=== PATIENT | female | born 1970 | race Caucasian/White ===

== ENCOUNTER 2016-12-09 22:00 | Emergency (ER) | payer MEDICARE, MEDICAID ==
[~2016-12-09] VITALS: Ht 154.9 cm; Wt 45.4 kg
[~2016-12-09 22:00] MED LIST: ALPR.5T PO; ALPR1T; ALPR1T PO; ALPR2TAB2 PO; ARIP15TA PO; ATOR10TA PO; ATRV10T PO; CEFP500T4 PO; CEPH-38 PO; DARI15TA4 PO; DOXY100T2 PO; DULO60CA6 PO; ESCI20TA2 PO; ESTR1TAB24 PO; FLUO20CA42 PO; FRESHKOTE EYE OU; GABA100T PO; HYDR-2890 PO; HYDR-34 PO; HYOS0.1217 PO; IPRA3AMP IH; LEVO500T69 PO; LURA80TA3 PO; MELO7.5T; MORP15TA30 PO; NAPR-243 PO; NORE5TAB5 PO; OMEP20CA12 PO; ONDA-42 SL; OXYC10TA63 PO; OXYC20TA63 PO; PNT40TEC PO; PRD20T PO; QTP100T PO; TOLTA4; TOLTA4 PO; TPR100T PO; TRM50T PO; TRZ50T PO; ZAFI20TA6 PO; [UNRECOGNIZED DRUG - CODE]
[2016-12-09] MEDS ORDERED: OLANZapine 5 MG ODT (ZyPREXA ZYDIS) PO ONE (22:30)
--- NOTE | 2016-12-09 22:31 | ED Psychosocial ---
General Stated Complaint: PANIC ATTACKS CAUSING LOC AND FALLS Source: patient Exam Limitations: no limitations History of Present Illness Time seen by provider: 22:29 Initial Comments To ER with reports of panic attacks causing loss of consciousness. This is secondary to an upcoming court case in 6 days for accusations of shoplifting at [facility] earlier this month. She arrives with her daughter. Severity: moderate Allergies and Home Medications Allergies Coded Allergies: buspirone (Verified Allergy, Severe, HIVES, SWELLING, 09/14/07) Penicillins (Verified Allergy, Intermediate, HIVES, 02/22/12) levofloxacin (Verified Allergy, Mild, rash, 11/16/15) Uncoded Allergies: SULFA (Allergy, Severe, swelling, 11/16/15) Home Medications Alprazolam 1 Mg Tablet, 1 TAB PO TID PRN, (Reported) Doxycycline Hyclate 100 Mg Tablet, 100 MG PO BID, #20 Prescribed by: GEGE CARDENAS on 02/24/161852 Estradiol 1 Mg Tablet, 1 MG PO DAILY, (Reported) Fluoxetine HCl 20 Mg Capsule, 20 MG PO, (Reported) Ipratropium/Albuterol Sulfate 3 Ml Ampul.neb, 3 ML IH Q4H PRN, (Reported) Lurasidone HCl 80 Mg Tablet, 80 MG PO, (Reported) Morphine Sulfate 15 Mg Tablet.er, #60 (Reported) Naproxen 500 Mg Tablet, 1 EACH PO BID, (Reported) DO NOT TAKE WHILE TAKING PREDNISONE. Norethindrone Acetate 5 Mg Tablet, 5 MG PO DAILY, (Reported) Omeprazole 20 Mg Capsule.dr, 1 CAP PO DAILY, #30 (Reported) Ondansetron Hcl 4 Mg Tab, 4 MG SL Q4H, #5 FOR NAUSEA AND VOMITING Prescribed by: NÉSTOR ARORA on 11/21/131748 Oxycodone HCl/Acetaminophen 1 Each Tablet, #120 (Reported) Pantoprazole Sodium 40 Mg Tablet.dr, 1 TAB PO DAILY, #10 Prescribed by: NÉSTOR ARORA on 11/21/131748 Topiramate 100 Mg Tab, 100 MG PO DAILY, (Reported) Topiramate 100 Mg Tab, 200 MG PO EVENING, (Reported) Trazodone Hcl 50 Mg Tab, 50 MG PO BID, (Reported) Zafirlukast 20 Mg Tablet, 20 MG PO BID, (Reported) [freshkote eye drops] , 1 DROP OU BID, (Reported) Constitutional: see HPI EENTM: see HPI Respiratory: no symptoms reported Cardiovascular: no symptoms reported Genitourinary: no symptoms reported Musculoskeletal: no symptoms reported Skin: no symptoms reported Psychiatric/Neurological: See HPI, Anxiety Past Yllvfho-Ulfvzw-Zhmowq Hx Patient Social History Type Used: Cigarettes Recent Foreign Travel: No Contact w/Someone Who Travel: No Seasonal Allergies Seasonal Allergies: No Surgeries HX Surgeries: Yes (LAPAROSCOPY, BLADDER SX X 3, BACK) Surgeries: Hysterectomy, Orthopedic Respiratory Hx Respiratory Disorders: Yes Respiratory Disorders: COPD Cardiovascular Hx Cardiac Disorders: No Neurological Hx Neurological Disorders: No Reproductive System Hx Reproductive Disorders: No Sexually Transmitted Disease: 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 Genitourinary Hx Genitourinary Disorders: Yes (BLADDER SURGERY X 3) Gastrointestinal Hx Gastrointestinal Disorders: No Musculoskeletal Hx Musculoskeletal Disorders: Yes Musculoskeletal Disorders: Chronic Back Pain Endocrine Hx Endocrine Disorders: No HEENT HX ENT Disorders: No Psychosocial Hx Psychiatric Problems: Yes Behavioral Health Disorders: PTSD Blood Transfusions Hx Blood Disorders: Yes Physical Exam Vital Signs Vital Sign - Last 12Hours 12/09/16 22:07 Temp 99.0 Pulse 87 Resp 24 B/P (MAP) 107/82 Pulse Ox 96 O2 Delivery Room Air Capillary Refill : General Appearance: WD/WN, no apparent distress HEENT: PERRL/EOMI, normal ENT inspection Neck: non-tender, full range of motion Respiratory: no respiratory distress Cardiovascular: regular rate, rhythm, no murmur Gastrointestinal: normal bowel sounds, non tender, soft Neurologic/Psychiatric: alert, normal mood/affect, other (tearful, speaking quickly, becomes tachypneic and increases crying and then immediately goes entirely left which lasts for about 1 minute and then she awakens and asks where she is.) Appearance/Memory: disheveled Behavior/Eye Contact: increased rate of speech, compulsive Thoughts/Hallucinations: flight of ideas Skin: normal color, warm/dry Progress/Results/Core Measures Results/Orders My Orders Orders - RAYMUNDO REYES APRN Olanzapine Orally Dissolve Tab (Zyprexa (12/09/16 22:30) Medications Given in ED Current Medications Medications Dose Ordered Sig/Jaimee Route Start Time Stop Time Status Last Admin Dose Admin Olanzapine 5 mg ONCE ONCE PO 12/09/16 22:30 12/09/16 22:31 DC 12/09/16 22:32 5 MG Vital Signs/I&O Vital Sign - Last 12Hours 12/09/16 22:07 Temp 99.0 Pulse 87 Resp 24 B/P (MAP) 107/82 Pulse Ox 96 O2 Delivery Room Air Departure Communication Progress Notes 6629-After much hysteria the patient is finally calm down and can speak in a full sentence without hyperventilating. She states that she feels better and is ready to go home. She now states to me that she has not had any of her Xanax today , normally she takes 2 of these per day. She does have an adequate supply of these at home Impression Impression: Primary Impression: Anxiety hysteria Disposition: HOME, SELF-CARE Condition: Improved Departure-Patient Inst. Decision time for Depature: 22:30 Referrals: YARY VELIZ MD (PCP/Family) Primary Care Physician Patient Instructions: Panic Disorder (DC) Add. Discharge Instructions: You may go home and go to sleep. Have your scan tomorrow as scheduled RAYMUNDO REYES APRN Dec 09, 2016 22:31
[2016-12-09] MEDS ORDERED: MORP-33 (22:53)
[2016-12-09] MEDS ORDERED: OXYC-464 (22:53)
[2016-12-09 23:11] VITALS: BP 107/82
== END 2016-12-09 23:11 | disposition home or self-care (01) ==
LOC: EDUNIT# 22:00 → ER 22:03
DX: F41.8 Other specified anxiety disorders (principal); J44.9 Chronic obstructive pulmonary disease, unspecified; F43.10 Post-traumatic stress disorder, unspecified; F17.210 Nicotine dependence, cigarettes, uncomplicated
CPT/HCPCS: 99283

== ENCOUNTER 2016-12-11 22:08 | Emergency (ER) | payer MEDICARE, MEDICAID ==
[~2016-12-11] VITALS: Ht 162.6 cm; Wt 59.0 kg
[~2016-12-11 22:08] MED LIST changes: +MORP-33; +OXYC-464
[2016-12-11 22:36] LABS: BILIRUBIN,URINE NEGATIVE (NEGATIVE); KETONES,URINE NEGATIVE (NEGATIVE); LEUKOCYTE ESTERASE ,URINE NEGATIVE (NEGATIVE); NITRITE,URINE NEGATIVE (NEGATIVE); PH,URINE 7 (5-9); PROTEIN,URINE NEGATIVE (NEGATIVE); UROBILINOGEN,URINE NORMAL (NORMAL)
[2016-12-11 22:37] LABS: WBC,URINE RARE /HPF
[2016-12-11 22:42] LABS: BASOPHILS # (AUTO) 0.1 10^3/uL (0.0-0.1); BASOPHILS % (AUTO) 1 % (0-10); EOSINOPHILS # (AUTO) 0.2 10^3/uL (0.0-0.3); EOSINOPHILS % (AUTO) 2 % (0-10); LYMPHOCYTES % (AUTO) 43 % (12-44); MEAN CORPUSCULAR HEMOGLOBIN 34 PG (25-34); MEAN CORPUSCULAR HGB CONC 34 G/DL (32-36); MEAN CORPUSCULAR VOLUME 100 FL (80-99); MEAN PLATELET VOLUME 8.4 FL (7.4-10.4); MONOCYTES # (AUTO) 0.7 X 10^3 (0.0-1.0); MONOCYTES % (AUTO) 8 % (0-12); NEUTROPHILS # (AUTO) 4.3 X 10^3 (1.8-7.8); NEUTROPHILS % (AUTO) 46 % (42-75); PLATELET COUNT 302 10^3/uL (130-400); RED BLOOD COUNT 3.82 10^6/uL (4.35-5.85); RED CELL DISTRIBUTION WIDTH 14.2 % (10.0-14.5); WHITE BLOOD COUNT 9.3 10^3/uL (4.3-11.0)
[2016-12-11 22:51] LABS: INR 1.1 (0.8-1.4); PROTHROMBIN TIME PATIENT 13.4 SEC (12.2-14.7)
[2016-12-11 23:03] LABS: ALANINE AMINOTRANSFERASE 15 U/L (0-55); ALBUMIN 3.9 GM/DL (3.2-4.5); ALCOHOL 100 MG/DL (<10); ANION GAP 10 MMOL/L (5-14); ASPARTATE AMINO TRANSFERASE 22 U/L (5-34); BILIRUBIN,TOTAL 0.3 MG/DL (0.1-1.0); BLOOD UREA NITROGEN 10 MG/DL (7-18); BUN/CREATININE RATIO 13 (0-20); CALCIUM 8.8 MG/DL (8.5-10.1); CARBON DIOXIDE 21 MMOL/L (21-32); CHLORIDE 109 MMOL/L (98-107); CREATINE KINASE 303 U/L (29-168); CREATININE SERUM 0.78 MG/DL (0.60-1.30); GFR ESTIMATED > 60; GLUCOSE 79 MG/DL (70-105); HEMOLYSIS 8 (-100-29); ICTERUS 0.4 (-100-1.9); LIPEMIA 6 (-100-49); MAGNESIUM 2.1 MG/DL (1.8-2.4); POTASSIUM 3.3 MMOL/L (3.6-5.0); SODIUM 140 MMOL/L (135-145); TOTAL PROTEIN 6.5 GM/DL (6.4-8.2)
[2016-12-11 23:22] LABS: TROPONIN I < 0.30 NG/ML (<0.30)
--- NOTE | 2016-12-11 23:52 | ED General ---
General Chief Complaint: Psych/Social Disorder Stated Complaint: UNRESPONSIVE Nursing Triage Note: BROUGHT IN BY [facility] PT REPORTED TO BE UNRESPONSIVE IN BACK YARD. PPD PERFORMED 1-2 COMPRESSIONS AND PT BECAME ALERT. PT REPORTS NECK/BACK/ POST. HEAD PAIN. PT REPORTS DRINKING 3 BEERS TODAY AND HAVING INCREASED ANXIETY. Nursing Sepsis Screen: No Definite Risk Source of Information: Patient, EMS History of Present Illness Time Seen by Provider: 22:10 Initial Comments PT ARRIVES VIA EMS FROM HOME--IN [facility] EMS STATE THEY WERE CALLED TO SCENE FOR PT BEING UNRESPONSIVE. BYSTANDER WHO CALLED EMS DID NOT KNOW IF PT WAS BREATHING OR HAD A HEART BEAT AND REFUSED TO START CPR. POLICE AT SCENE, WERE UNSURE IF PT HAD A PULSE OR NOT, SO DID 2 COMPRESSIONS AND PT SUDDENLY WOKE UP AND WAS AWAKE AND ORIENTED X 3 PT STATES SHE HAS HAD "A COUPLE OF BEERS' TONIGHT, BUT STATES SHE HAS NOT TAKEN ANY OF HER MEDICATIONS TODAY--GIVES NO REASON TO WHY SHE HAS NOT TAKEN THEM PT STATES SHE WAS TALKING TO HER DAUGHTERS AND GOT UPSET AND STARTED HAVING A PANIC ATTACK AND HYPERVENTILATING, AND THEN WENT DOWN TO THE GROUND PT STATES THIS ALSO HAPPENED 2 NIGHTS AGO, AFTER ARGUING AND GETTING UPSET, SHE STATES SHE STARTED WALKING AND HAD THE SAME THING HAPPEN AND "DROPPED TO THE GROUND" --PT ABLE TO RECALL ALL EVENTS--SEEN IN ER AT THAT TIME WELL. PT REPORTED AT THAT TIME, SHE WAS HAVING ANXIETY ABOUT UPCOMING COURT CASE NEXT WEEK FOR ACCUSATIONS OF SHOPLIFTING AT [employer]. WAS FEELING SHORT OF BREATH AND CHEST WAS GETTING TIGHT SHE WAS GETTING MORE AND MORE UPSET /ANXIOUS AND HYPERVENTILATING MORE-THOSE SYMPTOMS ARE GONE NOW C/O PAIN TO NECK AND BACK--THESE ARE CHRONIC COMPLAINTS NO PARESTHESIAS OR MOTOR DEFICITS C/O PAIN TO BACK OF HEAD NO INCONTINENCE--C/O NEEDING TO URINATE ON ARRIVAL. NO POST ICTAL SYMPTOMS OR SEIZURE ACTIVITY PCP: DR. VELIZ Allergies and Home Medications Allergies Coded Allergies: buspirone (Verified Allergy, Severe, HIVES, SWELLING, 09/14/07) Penicillins (Verified Allergy, Intermediate, HIVES, 02/22/12) levofloxacin (Verified Allergy, Mild, rash, 11/16/15) Uncoded Allergies: SULFA (Allergy, Severe, swelling, 11/16/15) Home Medications Alprazolam 1 Mg Tablet, 1 TAB PO TID PRN, (Reported) Estradiol 1 Mg Tablet, 1 MG PO DAILY, (Reported) Fluoxetine HCl 20 Mg Capsule, 20 MG PO, (Reported) Ipratropium/Albuterol Sulfate 3 Ml Ampul.neb, 3 ML IH Q4H PRN, (Reported) Lurasidone HCl 80 Mg Tablet, 80 MG PO, (Reported) Morphine Sulfate 15 Mg Tablet.er, #60 (Reported) Naproxen 500 Mg Tablet, 1 EACH PO BID, (Reported) DO NOT TAKE WHILE TAKING PREDNISONE. Norethindrone Acetate 5 Mg Tablet, 5 MG PO DAILY, (Reported) Omeprazole 20 Mg Capsule.dr, 1 CAP PO DAILY, #30 (Reported) Ondansetron Hcl 4 Mg Tab, 4 MG SL Q4H, #5 FOR NAUSEA AND VOMITING Prescribed by: NÉSTOR ARORA on 11/21/131748 Oxycodone HCl/Acetaminophen 1 Each Tablet, #120 (Reported) Pantoprazole Sodium 40 Mg Tablet.dr, 1 TAB PO DAILY, #10 Prescribed by: NÉSTOR ARORA on 11/21/131748 Topiramate 100 Mg Tab, 100 MG PO DAILY, (Reported) Topiramate 100 Mg Tab, 200 MG PO EVENING, (Reported) Trazodone Hcl 50 Mg Tab, 50 MG PO BID, (Reported) Zafirlukast 20 Mg Tablet, 20 MG PO BID, (Reported) [freshkote eye drops] , 1 DROP OU BID, (Reported) Constitutional: see HPI EENTM: see HPI Respiratory: see HPI Cardiovascular: see HPI Gastrointestinal: no symptoms reported Genitourinary: no symptoms reported : No Musculoskeletal: see HPI, back pain, neck pain Skin: no symptoms reported Psychiatric/Neurological: See HPI, Anxiety, Emotional Problems, Headache, Denies Numbness, Denies Paresthesia, Denies Seizure, Denies Tingling, Denies Tremors Hematologic/Lymphatic: No Symptoms Reported Immunological/Allergic: no symptoms reported Past Hzljjgc-Kzruvv-Woggzw Hx Patient Social History Alcohol Use: Occasionally Uses Recreational Drug Use: No (DENIES, BUT TAKES RX BENZODIAZEPINES AND OPIATES ON A DAILY BASIS) Drug of Choice: DENIES Smoking Status: Current Everyday Smoker (4 PPD) Type Used: Cigarettes 2nd Hand Smoke Exposure: No Recent Foreign Travel: No Contact w/Someone Who Travel: No Recent Infectious Disease Expo: No Recent Hopitalizations: No Immunizations Up To Date Tetanus Booster (TDap): Unknown Seasonal Allergies Seasonal Allergies: No Surgeries HX Surgeries: Yes (LAPAROSCOPY, BLADDER SX X 3, BENIGN TUMOR REMOVED FROM BACK ; HYST /BSO) Surgeries: Appendectomy, Bladder Surgery, Hysterectomy, Oophorectomy Respiratory Hx Respiratory Disorders: Yes Respiratory Disorders: Asthma, COPD Cardiovascular Hx Cardiac Disorders: Yes Cardiac Disorders: High Cholesterol Neurological Hx Neurological Disorders: Yes Neurological Disorders: Headaches /Migraines Reproductive System : No Hx Reproductive Disorders: Yes (CHRONIC PELVIC PAIN ) 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 Genitourinary Hx Genitourinary Disorders: Yes (BLADDER SURGERY X 3; BLADDER CONTROL ISSUES) Gastrointestinal Hx Gastrointestinal Disorders: No Musculoskeletal Hx Musculoskeletal Disorders: Yes (CHRONIC NECK AND BACK PAIN; CHRONIC GENERALIZED PAIN; CHRONIC KNEE PAIN; CHRONIC CHEST AND RIB PAIN ) Musculoskeletal Disorders: Chronic Back Pain Endocrine Hx Endocrine Disorders: No HEENT HX ENT Disorders: No Cancer Hx Cancer: No Psychosocial Hx Psychiatric Problems: Yes (EXTENISVE PSYCH ISSUES--PTSD, ANXIETY, PANIC ATTACKS, BIOPLAR ) Behavioral Health Disorders: Anxiety, PTSD, Bipolar, Depression Integumentary HX Skin/Integumentary Disorder: No Blood Transfusions Hx Blood Disorders: Yes (ANEMIA) Physical Exam Vital Signs Vital Sign - Last 12Hours 12/11/16 22:17 Temp 97.8 Pulse 86 Resp 16 B/P (MAP) 133/94 Pulse Ox 98 O2 Delivery Room Air Capillary Refill : Less Than 3 Seconds General Appearance: No Apparent Distress, Thin HEENT: PERRL/EOMI, TMs Normal, Normal ENT Inspection, Pharynx Normal Neck: Other (CERVICAL COLLAR ON ARRIVAL) Respiratory: Chest Non Tender, Normal Breath Sounds, No Accessory Muscle Use, No Respiratory Distress Cardiovascular: Regular Rate, Rhythm, No Edema, No JVD, No Murmur, Normal Peripheral Pulses Gastrointestinal: Normal Bowel Sounds, No Organomegaly, No Pulsatile Mass, Non Tender, Soft Back: Normal Inspection, No CVA Tenderness, No Vertebral Tenderness Extremity: Normal Capillary Refill, Normal Inspection, Normal Range of Motion, Non Tender, No Calf Tenderness, No Pedal Edema Neurologic/Psychiatric: Alert, Oriented x3, No Motor/Sensory Deficits, 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 as 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, Other (ANXIOUS, CONSTANT LEG MOVEMENTS, ) Skin: Normal Color, Warm/Dry Progress/Results/Core Measures Results/Orders Lab Results Laboratory Tests Test 12/11/16 22:19 12/11/16 22:30 Range/Units Urine Color YELLOW Urine Clarity CLEAR Urine pH 7 5-9 Urine Specific [place] 1.010 L 1.016-1.022 Urine Protein NEGATIVE NEGATIVE Urine Glucose (UA) NEGATIVE NEGATIVE Urine Ketones NEGATIVE NEGATIVE Urine Nitrite NEGATIVE NEGATIVE Urine Bilirubin NEGATIVE NEGATIVE Urine Urobilinogen NORMAL NORMAL MG/DL Urine Leukocyte Esterase NEGATIVE NEGATIVE Urine RBC (Auto) NEGATIVE NEGATIVE Urine RBC NONE /HPF Urine WBC RARE /HPF Urine Squamous Epithelial Cells 2-5 /HPF Urine Crystals NONE /LPF Urine Bacteria FEW H /HPF Urine Casts NONE /LPF Urine Mucus NEGATIVE /LPF Urine Culture Indicated NO Urine Opiates Screen POSITIVE H NEGATIVE Urine Oxycodone Screen NEGATIVE NEGATIVE Urine Methadone Screen NEGATIVE NEGATIVE Urine Propoxyphene Screen NEGATIVE NEGATIVE Urine Barbiturates Screen NEGATIVE NEGATIVE Ur Tricyclic Antidepressants Screen NEGATIVE NEGATIVE Urine Phencyclidine Screen NEGATIVE NEGATIVE Urine Amphetamines Screen NEGATIVE NEGATIVE Urine Methamphetamines Screen NEGATIVE NEGATIVE Urine Benzodiazepines Screen POSITIVE H NEGATIVE Urine Cocaine Screen NEGATIVE NEGATIVE Urine Cannabinoids Screen NEGATIVE NEGATIVE White Blood Count 9.3 4.3-11.0 10^3/uL Red Blood Count 3.82 L 4.35-5.85 10^6/uL Hemoglobin 12.9 11.5-16.0 G/DL Hematocrit 38 35-52 % Mean Corpuscular Volume 100 H 80-99 FL Mean Corpuscular Hemoglobin 34 25-34 PG Mean Corpuscular Hemoglobin Concent 34 32-36 G/DL Red Cell Distribution Width 14.2 10.0-14.5 % Platelet Count 302 130-400 10^3/uL Mean Platelet Volume 8.4 7.4-10.4 FL Neutrophils (%) (Auto) 46 42-75 % Lymphocytes (%) (Auto) 43 12-44 % Monocytes (%) (Auto) 8 0-12 % Eosinophils (%) (Auto) 2 0-10 % Basophils (%) (Auto) 1 0-10 % Neutrophils # (Auto) 4.3 1.8-7.8 X 10^3 Lymphocytes # (Auto) 4.0 1.0-4.0 X 10^3 Monocytes # (Auto) 0.7 0.0-1.0 X 10^3 Eosinophils # (Auto) 0.2 0.0-0.3 10^3/uL Basophils # (Auto) 0.1 0.0-0.1 10^3/uL Prothrombin Time 13.4 12.2-14.7 SEC INR Comment 1.1 0.8-1.4 Activated Partial Thromboplast Time 30 24-35 SEC Sodium Level 140 135-145 MMOL/L Potassium Level 3.3 L 3.6-5.0 MMOL/L Chloride Level 109 H 98-107 MMOL/L Carbon Dioxide Level 21 21-32 MMOL/L Anion Gap 10 5-14 MMOL/L Blood Urea Nitrogen 10 7-18 MG/DL Creatinine 0.78 0.60-1.30 MG/DL Estimat Glomerular Filtration Rate > 60 BUN/Creatinine Ratio 13 0-20 Glucose Level 79 70-105 MG/DL Calcium Level 8.8 8.5-10.1 MG/DL Magnesium Level 2.1 1.8-2.4 MG/DL Total Bilirubin 0.3 0.1-1.0 MG/DL Aspartate Amino Transf (AST/SGOT) 22 5-34 U/L Alanine Aminotransferase (ALT/SGPT) 15 0-55 U/L Alkaline Phosphatase 49 40-136 U/L Total Creatine Kinase 303 H 29-168 U/L Troponin I < 0.30 <0.30 NG/ML Total Protein 6.5 6.4-8.2 GM/DL Albumin 3.9 3.2-4.5 GM/DL TSH [place]er Testing 0.63 0.35-4.94 UIU/ML Serum Alcohol 100 H <10 MG/DL My Orders Orders - NÉSTOR ARORA DO Saline Lock/Iv-Start (12/11/16 22:13) Ekg Tracing (12/11/16 22:13) Monitor-Rhythm Ecg Trace Only (12/11/16 22:13) Ct Head/Cervical Spine Wo (12/11/16 22:13) Ct Thoracic/Lumbar Spine Wo (12/11/16 22:13) Alcohol (12/11/16 22:13) Cbc With Automated Diff (12/11/16 22:13) Comprehensive Metabolic Panel (12/11/16 22:13) Creatine Kinase (12/11/16 22:13) Drug Screen Stat (Urine) (12/11/16 22:13) Magnesium (12/11/16 22:13) Protime With Inr (12/11/16 22:13) Partial Thromboplastin Time (12/11/16 22:13) Thyroid Analyzer (12/11/16 22:13) Troponin I (12/11/16 22:13) Ua Culture If Indicated (12/11/16 22:13) Chest 1 View, Ap/Pa Only (12/11/16 22:13) Pelvis (12/11/16 22:13) Vital Signs/I&O Vital Sign - Last 12Hours 12/11/16 12/12/16 22:17 00:00 Temp 97.8 98.0 Pulse 86 75 Resp 16 16 B/P (MAP) 133/94 Pulse Ox 98 96 O2 Delivery Room Air Room Air Blood Pressure Mean: 107 Progress Note : Progress Note 2326--CERVICAL COLLAR REMOVED AFTER OBTAINING NEGATIVE CT REPORT ON HEAD AND CERVICAL SPINE. PT DOES NOT HAVE ANY NECK PAIN OR TENDERNESS AT THIS TIME UNEVENTFUL ER STAY ECG Initial ECG Impression Time: 23:16 Initial ECG Rate: 75 Initial ECG Rhythm: Normal Sinus Initial ECG Impression: Normal Initial ECG Comparisson: Unchanged Diagnostic Imaging Comments CT HEAD/CERVICAL SPINE--NO ACUTE PROCESS, PER [facility] VIA FAX @ 7018 CT THORACIC/LUMBAR SPINE--NO ACUTE PROCESS, PER [facility] VIA FAX @ 8965 CXR--NO ACUTE PROCESS XRAYS PELVIS--NO ACUTE PROCESS PENDING RADIOLOGIST REVIEWS Reviewed: Reviewed by Me Departure Impression Impression: Primary Impression: ANXIETY WITH HYPERVENTILATION AND POSSIBLE SYNCOPAL EPISODE Additional Impressions: EXACERBATION OF CHRONIC BACK AND NECK PAIN Alcohol intoxication Disposition: 01 HOME, SELF-CARE Condition: Stable Departure-Patient Inst. Referrals: YARY VELIZ MD (PCP/Family) Primary Care Physician Patient Instructions: ALCOHOL AND SUBSTANCE ABUSE, Chronic Neck Pain (DC), Generalized Anxiety Disorder (DC), Hyperventilation, MANAGING YOUR CHRONIC PAIN , Syncope (Fainting) (DC) Add. Discharge Instructions: HOME, REST LOTS OF CLEAR LIQUIDS TAKE YOUR MEDICATIONS PRESCRIBED NO ALCOHOL!!!! FOLLOW UP WITH YOUR DR ON WEDNESDAY FOR FURTHER CARE All discharge instructions reviewed with patient and/or family. Voiced understanding. NÉSTOR ARORA DO Dec 11, 2016 23:52
[2016-12-12] VITALS: BP 114/84
--- NOTE | 2016-12-12 06:47 | Diagnostic Imaging Report ---
INDICATION: Fall, head pain, double vision, and back pain. COMPARISON: 04/28/2015. TECHNIQUE: Axial CT thoracolumbar spine performed with sagittal and coronal reconstructions. FINDINGS: The thoracic and lumbar vertebral statures are stable and aligned anatomically, unchanged from prior. No acute or suspicious endplate irregularity. No fracture or paravertebral hemorrhage. No high-grade canal stenosis evident. No change. IMPRESSION: Stable exam reveals no CT evidence for thoracolumbar spinal fracture or traumatic malalignment. Dictated by: Dictated on workstation # [id number]
--- NOTE | 2016-12-12 07:00 | Diagnostic Imaging Report ---
PROCEDURE: CT head and CT cervical spine without contrast. TECHNIQUE: Multiple contiguous axial images were obtained through the brain and cervical spine without the use of intravenous contrast. Sagittal and coronal reformations through the cervical spine were then performed. INDICATION: Fall, syncope, and diplopia. CT head: There is no intracranial hemorrhage, hydrocephalus, edema, mass or mass effect. Basilar cisterns patent and sulci non-effaced. Orbits, sinuses and calvarium nonacute. CT cervical spine: Reconstruction views revealed normal body heights aligned anatomically. No substantial canal stenosis. Skull base appeared intact. There is no cervical fracture. No paravertebral hemorrhage, mass or fluid collection demonstrated. IMPRESSION: No acute finding apparent at CT head and CT cervical spine evaluation. Dictated by: Dictated on workstation # [id number]
--- NOTE | 2016-12-12 08:22 | Diagnostic Imaging Report ---
INDICATION: Fall FINDINGS: No fracture or dislocation. IMPRESSION: No acute appearing abnormality Dictated by: Dictated on workstation # [id number]
--- NOTE | 2016-12-12 08:28 | Diagnostic Imaging Report ---
INDICATION: Fall, pain FINDINGS: No lung contusion, pneumothorax or hemothorax. No free air beneath the diaphragms. No displaced chest wall fracture deformity. IMPRESSION: No acute appearing abnormality Dictated by: Dictated on workstation # [id number]
--- OUTSIDE RECORDS SUMMARY | 2016-12-14 15:56 | XMS REPORT | Continuity of Care Document ---
Author Author [facility] Organization [facility] Address Unknown Phone Unavailable Care Team Providers Care Grants Administrator Name Role Phone Maile Duarte PCP [phone] Source Comments Some departments are not documenting in the electronic medical record. If you do not see the information that you expected, contact Release of Information in the Health Information Management department at [phone] for further assistance in locating additional records.[facility] Active Allergies and Adverse Reactions Allergen Noted Date Severity Reactions Comments Buspar 01/01/2014 RASH Pcn 01/01/2014 Medium RASH, UNKNOWN Sulfa (Sulfonamide 10/30/2014 Medium SEE COMMENTS, EDEMA Abdominal cramping Antibiotics) Current Medications Prescription Sig. Disp. Refills Start End Date Status Date montelukast (SINGULAIR) Take 10 mg by mouth at Active 10 mg tablet bedtime daily. omeprazole DR(+) Take 20 mg by mouth Active (PRILOSEC) 20 mg capsule daily. albuterol (VENTOLIN HFA, Inhale 2 Puffs by mouth Active PROAIR HFA) 90 every 6 hours as needed. mcg/actuation inhaler Typically 2 puffs twice a day tiZANidine (ZANAFLEX) 4 Take 4 mg by mouth every Active mg tablet 6 hours as needed. traZODone (DESYREL) 100 Take 200 mg by mouth at Active mg tablet bedtime daily. FLUoxetine(+) (PROZAC) 40 Take 60 mg by mouth Active mg capsule daily. Eye Lubricant Combination Place into or around Active No.1 (FRESHKOTE) eye(s). 2-0.9-1.8 % drop [id number] Take by mouth. Active p 11 10-325 mg cmpk raloxifene (EVISTA) 60 mg Take 60 mg by mouth daily Active tablet before breakfast. norethindrone(+) Take 5 mg by mouth daily. Active (AYGESTIN) 5 mg tab lurasidone(+) (LATUDA) 80 Take 80 mg by mouth as Active mg tablet directed. Patient takes at night ipratropium/albuterol Inhale 2 Puffs by mouth Active (COMBIVENT) 103/18 four times daily. mcg/Actuation inhaler ALPRAZolam (XANAX) 1 mg Take 1 mg by mouth at Active tablet bedtime as needed. budesonide/formoterol Inhale 2 Puffs by mouth Active (SYMBICORT) 160/4.5 mcg twice daily. HFAA inhalation topiramate (TOPAMAX) 100 Take 100 mg by mouth Active mg tablet twice daily. Takes two in morning. topiramate (TOPAMAX) 100 Take 200 mg by mouth at Active mg tablet bedtime daily. naproxen (NAPROSYN) 500 Take 500 mg by mouth Active mg tablet twice daily with meals. morphine SR (MS CONTIN; Take 15 mg by mouth every Active ORAMORPH SR) 15 mg tablet 12 hours LACTOBACILLUS COMBO NO.5 Take 1 Tab by mouth Active (PROVELLA PO) daily. TIOTROPIUM BROMIDE Inhale 1 Cap by mouth. Active (SPIRIVA WITH HANDIHALER Take 2 puffs IN) promethazine (PHENERGAN) Take 25 mg by mouth every Active 25 mg tablet 6 hours as needed for Nausea. mirtazapine (REMERON) 15 Take 15 mg by mouth at Active mg tablet bedtime daily. PAROXETINE HCL (PAXIL PO) Take 40 mg by mouth. Active oxyCODONE-acetaminophen(+ Take 1-2 Tabs by mouth Active ) (PERCOCET; ENDOCET) every 4 hours as needed 7.5-325 mg tablet atorvastatin (LIPITOR) 10 Take 10 mg by mouth Active mg tablet daily. ziprasidone (GEODON) 40 Take 80 mg by mouth twice Active mg capsule daily with meals. ospemifene 60 mg tab Take by mouth. Active trospium ER(+) (SANCTURA Take 1 Cap by mouth 30 Cap 12 11/13/19 Active XR) 60 mg capsule daily. Do not cut/ crush/ 17 chew hydrOXYzine (ATARAX) 25 Take 1 Tab by mouth twice 60 Tab 12 11/13/19 Active mg tablet daily. 17 Active Problems Problem Noted Date Urge incontinence 01/04/2014 Overview: 05/10/2014: Mirabegron 50mg. L ast Assessment & Plan: Patient currently symptomatic with some benefit with the use of Mirabegron. Her pelvic exam was normal. We counseled her on pelvic floor therapy, constipation management. Plan: PFRT referral with biofeedback, Constipation management. Continue Mirabegron RTC in 3 months for symptoms check Chronic pelvic pain in female 01/04/2014 Depression 01/04/2014 PTSD (post-traumatic stress disorder) 01/04/2014 Most Recent Encounters Date Type Specialty Providers Description 11/12/2016 Office Visit Urology Sampson Barrett MD Urinary urgency ( Primary Dx); Interstitial cystitis Social History Tobacco Use Types Packs/Day Years Used Date Heavy Tobacco Smoker Cigarettes 2 17 Alcohol Use Drinks/Week oz/Week Comments Yes 1-2 every 6 months, occasionally Last Filed Vital Signs Vital Sign Reading Time Taken Blood Pressure 124/83 11/12/2016 1:16 PM CDT Pulse 79 11/12/2016 1:16 PM CDT Temperature 36.5 C (97.7 F) 11/13/2014 9:40 AM CDT Respiratory Rate - - Height 1.549 m (5' 1") 11/12/2016 1:16 PM CDT Weight 46.72 kg (103 lb) 11/12/2016 1:16 PM CDT Body Mass Index 19.47 11/12/2016 1:16 PM CDT Oxygen Saturation 100% 11/13/2014 2:00 PM CDT Plan of Care Health Maintenance Due Date Last Done Comments Physical (Comprehensive) 1977 Exam Pertussis Vaccine 1981 Tetanus Vaccine 1987 Cervical Cancer Screening 1991 Breast Cancer Screening 2010 Influenza Vaccine 02/19/2017 Results from Last 3 Months Not on file
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
== END 2016-12-11 23:56 | disposition home or self-care (01) ==
LOC: EDUNIT# 22:08 → ER 22:09
DX: F41.8 Other specified anxiety disorders (principal); F45.8 Other somatoform disorders; G89.29 Other chronic pain; M54.9 Dorsalgia, unspecified; M54.2 Cervicalgia; F31.9 Bipolar disorder, unspecified; E78.00 Pure hypercholesterolemia, unspecified; F41.9 Anxiety disorder, unspecified; J44.9 Chronic obstructive pulmonary disease, unspecified; F17.210 Nicotine dependence, cigarettes, uncomplicated; F10.129 Alcohol abuse with intoxication, unspecified
CPT/HCPCS: 36415; 70450; 71010; 72125; 72128; 72131; 72170; 80053; 80306; 80320; 81000; 82550; 83735; 84443; 84484; 85025; 85610; 85730; 93005; 93041

== ENCOUNTER → 2017-01-14 | Outpatient (CLI) | payer MEDICARE, MEDICAID ==
--- NOTE | 2017-01-14 16:30 | Diagnostic Imaging Report ---
INDICATION: Cough and dyspnea. PA and lateral views of the chest are obtained. Comparison is made to study of 12/11/2016. FINDINGS: Heart size and pulmonary vascularity are within normal limits, and the lungs are clear, bilaterally. IMPRESSION: Unremarkable chest. Dictated by: Dictated on workstation # [id number]
== END ==
LOC: RAD 16:12
PROVIDERS: ATTEND Nurse Practitioner Family
DX: J42 Unspecified chronic bronchitis (principal); J45.909 Unspecified asthma, uncomplicated; R06.00 Dyspnea, unspecified
CPT/HCPCS: 71020

== ENCOUNTER → 2017-01-18 | Outpatient (CLI) | payer MEDICARE, MEDICAID ==
[~2017-01-18] MED LIST changes: +RT-ALBUTEROL SULF 2.5 MG/3 ML PRE-MIX VIAL IH ONE
== END ==
LOC: RT 15:16
PROVIDERS: ATTEND Nurse Practitioner Family
DX: J45.909 Unspecified asthma, uncomplicated (principal); R06.00 Dyspnea, unspecified
CPT/HCPCS: 94060; 94640; 94726; 94729

== ENCOUNTER 2017-12-30 23:26 | Emergency (ER) | payer MEDICARE, MEDICAID ==
[~2017-12-30] VITALS: Ht 154.9 cm; Wt 47.6 kg
[~2017-12-30 23:26] MED LIST changes: -RT-ALBUTEROL SULF 2.5 MG/3 ML PRE-MIX VIAL IH ONE
--- OUTSIDE RECORDS SUMMARY | 2017-12-30 23:33 | XMS REPORT | Clinical Summary ---
Author Author [facility] Organization [facility] Address Unknown Phone Unavailable Care Team Providers Care Swatch Cutter Name Role Phone Jasvir Lambert MD Unavailable Sampson Barrett MD Unavailable Sadie Connolly RN Unavailable Unavailable Waylon Harrell MD Unavailable Unavailable Maile Duarte MD PCP Mushtaq Lopez RN Unavailable Unavailable Belkis Spaulding MD Unavailable Jorden Maria MD Unavailable Source Comments Some departments are not documenting in the electronic medical record. If you do not see the information that you expected, contact Release of Information in the Health Information Management department at [phone] for further assistance in locating additional records.[facility] Allergies Active Allergy Reactions Severity Noted Date Comments Buspirone RASH 01/01/2014 Penicillins RASH, UNKNOWN Medium 01/01/2014 Sulfa (Sulfonamide SEE COMMENTS, EDEMA Medium 10/30/2014 Abdominal cramping Antibiotics) Current Medications Prescription Sig. [...] Active No.1 (FRESHKOTE) eye(s). 2-0.9-1.8 % drop Gtqfcpewzdg-Xuqrd-Bnfs.Jon Take by mouth. Active p 11 10-325 [...] Depression 01/04/2014 PTSD (post-traumatic stress disorder) 01/04/2014 Social History Tobacco Use Types Packs/Day Years Used Date Heavy Tobacco Smoker Cigarettes 2 17 Alcohol Use Drinks/Week oz/Week Comments Yes 1-2 every 6 months, occasionally Sex Assigned at Date Recorded Not on file Last Filed Vital Signs Vital Sign Reading Time Taken Blood Pressure 124/83 11/12/2016 1:16 PM CDT Pulse 79 11/12/2016 1:16 PM CDT Temperature 36.5 C (97.7 F) 11/13/2014 9:40 AM CDT Respiratory Rate - - Oxygen Saturation 100% 11/13/2014 2:00 PM CDT Inhaled Oxygen - - Concentration Weight 46.7 kg (103 lb) 11/12/2016 1:16 PM CDT Height 154.9 cm (5' 1") 11/12/2016 1:16 PM CDT Body Mass Index 19.46 11/12/2016 1:16 PM CDT Plan of Treatment Health Maintenance Due Date Last Done Comments PHYSICAL (COMPREHENSIVE) 1977 EXAM PERTUSSIS VACCINE 1981 HIV SCREENING 1985 TETANUS VACCINE 1987 CERVICAL CANCER SCREENING 2000 BREAST CANCER SCREENING 2010 INFLUENZA VACCINE 03/21/2018 Results Not on filefrom Last 3 Months
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
[2017-12-31 00:22] LABS: BILIRUBIN,URINE NEGATIVE (NEGATIVE); CLARITY,URINE CLEAR; COLOR,URINE AMBER; GLUCOSE, URINE (UA) NEGATIVE (NEGATIVE); KETONES,URINE NEGATIVE (NEGATIVE); LEUKOCYTE ESTERASE ,URINE 3+ (NEGATIVE); NITRITE,URINE NEGATIVE (NEGATIVE); PH,URINE 6 (5-9); PROTEIN,URINE 1+ (NEGATIVE); UROBILINOGEN,URINE NORMAL (NORMAL)
[2017-12-31 00:47] LABS: BACTERIA,URINE MODERATE /HPF; SQUAMOUS EPITHELIAL CELL,UR 0-2 /HPF
[2017-12-31] MEDS ORDERED: PHEN-639 PO (01:06)
[2017-12-31] MEDS ORDERED: NITR-65 PO (01:06)
--- NOTE | 2017-12-31 01:07 | ED GU-Female ---
General Chief Complaint: -Female Stated Complaint: FEVER,POSS UTI,CAN'T URINATE Nursing Triage Note: PT PRESENTS TO ER WITH COMPLAINT OF POSSIBLE UTI. STATES SHE HAD DIFFICULTY URINATING FOR SEVERAL HOURS. STATES SHE COULD POSSIBLY HAVE A YEAST INFECTION ALSO. Nursing Sepsis Screen: No Definite Risk Source: patient Exam Limitations: no limitations History of Present Illness Date Seen by Provider: Dec 31, 2017 Time Seen by Provider: 00:14 Initial Comments This 47 a woman presents to the emergency room with complaints of dysuria and vaginal itching that started today. She does have a history of interstitial cystitis and UTI. She had difficulty urinating and went 8 hours today without being able to urinate. She denies fever or significant pain. She reports history of vaginal yeast infections and is concerned she may have a yeast infection now. Allergies and Home Medications Allergies Coded Allergies: buspirone (Verified Allergy, Severe, HIVES, SWELLING, 09/14/07) Penicillins (Verified Allergy, Intermediate, HIVES, 02/22/12) levofloxacin (Verified Allergy, Mild, rash, 11/16/15) Uncoded Allergies: SULFA (Allergy, Severe, swelling, 11/16/15) Home Medications Alprazolam 1 Mg Tablet, 1 TAB PO TID PRN, (Reported) Estradiol 1 Mg Tablet, 1 MG PO DAILY, (Reported) Ipratropium/Albuterol Sulfate 3 Ml Ampul.neb, 3 ML IH Q4H PRN, (Reported) Naproxen 500 Mg Tablet, 1 EACH PO BID, (Reported) DO NOT TAKE WHILE TAKING PREDNISONE. Nitrofurantoin Monohyd/M-Cryst 100 Mg Capsule, 1 TAB PO BID Prescribed by: GEGE CARDENAS on 12/31/17105 Norethindrone Acetate 5 Mg Tablet, 5 MG PO DAILY, (Reported) Omeprazole 20 Mg Capsule.dr, 1 CAP PO DAILY, (Reported) Ondansetron Hcl 4 Mg Tab, 4 MG SL Q4H FOR NAUSEA AND VOMITING Prescribed by: NÉSTOR ARORA on 11/21/131748 Pantoprazole Sodium 40 Mg Tablet.dr, 1 TAB PO DAILY Prescribed by: NÉSTOR ARORA on 11/21/131748 Phenazopyridine HCl 100 Mg Tablet, 100 MG PO TID PRN for PAIN-MILD TO MODERATE Prescribed by: GEGE CARDENAS on 12/31/176 Topiramate 100 Mg Tab, 100 MG PO DAILY, (Reported) Topiramate 100 Mg Tab, 200 MG PO EVENING, (Reported) Trazodone Hcl 50 Mg Tab, 50 MG PO BID, (Reported) Zafirlukast 20 Mg Tablet, 20 MG PO BID, (Reported) [freshkote eye drops] , 1 DROP OU BID, (Reported) Patient Home Medication List Home Medication List Reviewed: Yes Review of Systems Constitutional: no symptoms reported EENTM: no symptoms reported Respiratory: no symptoms reported Cardiovascular: no symptoms reported Gastrointestinal: no symptoms reported Genitourinary: see HPI : No Musculoskeletal: no symptoms reported Skin: no symptoms reported Psychiatric/Neurological: No Symptoms Reported Endocrine: No Symptoms Reported Past Zjxmvzp-Dzcgib-Xehsrv Hx Past Med/Social Hx: Reviewed and Corrections made Patient Social History Alcohol Use: Occasionally Uses Number of Drinks Today: AA Alcohol Beverage of Choice: Beer Recreational Drug Use: Yes (SMOKES 2PPD) Drug of Choice: DENIES Type Used: Cigarettes 2nd Hand Smoke Exposure: No Recent Foreign Travel: No Contact w/Someone Who Travel: No Recent Infectious Disease Expo: No Recent Hopitalizations: No Immunizations Up To Date Tetanus Booster (TDap): Unknown Seasonal Allergies Seasonal Allergies: No Past Medical History Surgeries: Yes (LAPAROSCOPY, BLADDER SX X 3, BENIGN TUMOR REMOVED FROM BACK; HYST /BSO) Appendectomy, Bladder Surgery, Hysterectomy, Oophorectomy Respiratory: Yes Asthma, COPD Cardiac: Yes High Cholesterol Neurological: Yes Headaches /Migraines Reproductive Disorders: Yes (CHRONIC PELVIC PAIN ) 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 oz. 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 Patient was treated with Macrobid , Pyridium, and Diflucan. Departure Impression Primary Impression: Urinary tract infection Qualified Codes: N39.0 - Urinary tract infection, site not specified Additional Impressions: Urinary hesitancy Vaginal pruritus Disposition: HOME, SELF-CARE Condition: Improved Departure-Patient Inst. Decision time for Depature: 01:00 Referrals: YARY DUARTE MD (PCP/Family) Primary Care Physician Patient Instructions: Vaginal Yeast Infection (DC), Urinary Tract Infection, Adult (DC) Add. Discharge Instructions: Drink plenty of clear liquids. Complete your antibiotic as prescribed. You may use peridium as prescribed for bladder pain. Contact Dr. Duarte's office on Wednesday morning to follow-up on urine culture results. Return to care if you have worsening symptoms. All discharge instructions reviewed with patient and/or family. Voiced understanding. Scripts Phenazopyridine HCl (Pyridium) 100 Mg Tablet 100 MG PO TID PRN for PAIN-MILD TO MODERATE, #10 TAB Prov: GEGE PADILLA MD 12/31/17 Nitrofurantoin Monohyd/M-Cryst (Macrobid 100 mg Capsule) 100 Mg Capsule 1 TAB PO BID, #14 CAP Prov: GEGE PADILLA MD 12/31/17 Copy Copies To 1: YARY DUARTE MD, JOSHUA T MD Dec 31, 2017 01:07
[2017-12-31 01:14] VITALS: BP 132/78
[2017-12-31] MEDS ORDERED: FLUCONAZOLE 150 MG TABLET (ED ONLY) PO ONE (01:15)
[2017-12-31] MEDS ORDERED: PHENAZOPYRIDINE 100 MG (PYRIDIUM) TABLET PO ONE (01:15)
[2017-12-31] MEDS ORDERED: NITROFURANTOIN 100 MG (MACROBID) CAPSULE PO ONE (01:15)
== END 2017-12-31 01:12 | disposition home or self-care (01) ==
LOC: EDUNIT# 23:26 → ER 23:28
DX: N39.0 Urinary tract infection, site not specified (principal); L29.2 Pruritus vulvae; E78.00 Pure hypercholesterolemia, unspecified; G43.909 Migraine, unspecified, not intractable, without status migrainosus; F41.0 Panic disorder [episodic paroxysmal anxiety]; D64.9 Anemia, unspecified; F43.10 Post-traumatic stress disorder, unspecified; F31.9 Bipolar disorder, unspecified; F17.210 Nicotine dependence, cigarettes, uncomplicated; Z90.89 Acquired absence of other organs; Z90.710 Acquired absence of both cervix and uterus; Z88.0 Allergy status to penicillin; Z88.2 Allergy status to sulfonamides; Z88.8 Allergy status to other drugs, medicaments and biological substances
CPT/HCPCS: 81000; 87088; 99283

== ENCOUNTER → 2018-08-30 | Outpatient (CLI) | payer MEDICARE, MEDICAID ==
[~2018-08-30] MED LIST changes: +NITR-65 PO; +PHEN-639 PO
--- NOTE | 2018-08-30 14:43 | Diagnostic Imaging Report ---
PROCEDURE: MRI lumbar spine. TECHNIQUE: Multiplanar, multisequence MRI of the lumbar spine was performed without contrast. INDICATION: Low back pain. Right leg weakness. History of tumor removed. COMPARISON: CT thoracolumbar spine without contrast 12/11/2016. FINDINGS: There are five lumbar type vertebral bodies. Normal alignment. Vertebral body heights preserved. Schmorl's node in the superior endplate of L1. Bone marrow signal is otherwise unremarkable. Small broad-based disc bulge at L4-L5. Mild facet arthropathy at L4-L5. No high-grade spinal canal, lateral recess or neural foraminal narrowing in the lumbar spine. No abnormal signal in the conus which terminates at L1. Normal morphology of the cauda equina. The visualized abdominal and pelvic contents are unremarkable. IMPRESSION: Mild spondylotic changes in the lumbar spine result in no high-grade neural impingement. No acute osseous findings. Dictated by: Dictated on workstation # [id number]
== END ==
LOC: RAD 13:43
PROVIDERS: ATTEND Pain Medicine Interventional Pain Medicine
DX: M47.816 Spondylosis without myelopathy or radiculopathy, lumbar region (principal); M51.36 Other intervertebral disc degeneration, lumbar region; Z85.9 Personal history of malignant neoplasm, unspecified
CPT/HCPCS: 72148

== ENCOUNTER → 2019-01-24 | Outpatient (CLI) | payer MEDICARE, MEDICAID ==
[~2019-01-24] MED LIST changes: +HOLD METFORMIN - RECEIVED CONTRAST 20 ML VIAL IV SCH; +IOHEXOL 350 MG/ML 100 ML (OMNIPAQUE 350) VIAL IV ONE; +NS 100 ML (IVPB) BAG IV ONE
[2019-01-24 08:20] LABS: BUN/CREATININE RATIO 10; CREATININE SERUM 0.86 MG/DL (0.60-1.30); GFR ESTIMATED > 60
--- NOTE | 2019-01-24 11:06 | Diagnostic Imaging Report ---
PROCEDURE: CT chest with contrast only. TECHNIQUE: Multiple contiguous axial images were obtained through the chest after administration of intravenous contrast. Auto Exposure Controls were utilized during the CT exam to meet ALARA standards for radiation dose reduction. INDICATION: Cough, shortness of breath. History of bronchitis. COMPARISON: CT chest of 05/01/2010 FINDINGS: Lungs and airway: No endoluminal nodule within the trachea. No pulmonary mass or consolidation. No concerning pulmonary nodules. Pleura: No pleural effusion or pneumothorax. Heart and mediastinum: Thyroid is normal where seen. No supraclavicular or axillary lymphadenopathy. No mediastinal, hilar or juxtaphrenic lymphadenopathy. Heart is normal in size and there is no pericardial effusion. Normal caliber thoracic aorta without dissection. Upper abdomen: Normal Musculoskeletal: Normal regional skeleton. IMPRESSION: 1. No acute cardiopulmonary process. 2. No features of intrathoracic neoplasm. Dictated by: Dictated on workstation # [id number]
== END ==
LOC: RAD 07:45
PROVIDERS: ATTEND Nurse Practitioner Family
DX: J45.909 Unspecified asthma, uncomplicated (principal); Z87.09 Personal history of other diseases of the respiratory system; Z72.0 Tobacco use
CPT/HCPCS: 36415; 71260; 82565; 84520

== ENCOUNTER → 2019-01-30 | Outpatient (CLI) | payer MEDICARE, MEDICAID ==
[~2019-01-30] MED LIST changes: -HOLD METFORMIN - RECEIVED CONTRAST 20 ML VIAL IV SCH; -IOHEXOL 350 MG/ML 100 ML (OMNIPAQUE 350) VIAL IV ONE; -NS 100 ML (IVPB) BAG IV ONE
--- NOTE | 2019-01-30 10:29 | Diagnostic Imaging Report ---
INDICATION: Routine screening. COMPARISON: 09/05/2015 and 03/24/2013. TECHNIQUE: 2D and 3D bilateral screening mammography was performed with CAD. FINDINGS: Scattered fibroglandular densities are identified bilaterally. No spiculated mass or malignant appearing microcalcifications are seen. The axillae are unremarkable. IMPRESSION: No mammographic features suspicious for malignancy are identified. ACR BI-RADS Category 1: Negative. Result letter will be mailed to the patient. Note: At least 10% of breast cancer is not imaged by mammography. Dictated by: Dictated on workstation # [id number]
== END ==
LOC: RAD 08:55
PROVIDERS: ATTEND Nurse Practitioner Family
DX: Z12.31 Encounter for screening mammogram for malignant neoplasm of breast (principal)
CPT/HCPCS: 77067

== ENCOUNTER → 2019-02-23 | Outpatient (CLI) | payer MEDICARE, MEDICAID ==
[~2019-02-23] MED LIST changes: +RT-ALBUTEROL SULF 2.5 MG/3 ML PRE-MIX VIAL INH ONE
== END ==
LOC: RT 09:15
PROVIDERS: ATTEND Nurse Practitioner Family
DX: J42 Unspecified chronic bronchitis (principal); J45.909 Unspecified asthma, uncomplicated; Z72.0 Tobacco use
CPT/HCPCS: 94060; 94640; 94726; 94729

== ENCOUNTER → 2019-06-06 | Outpatient (CLI) | payer MEDICARE, MEDICAID ==
[~2019-06-06] MED LIST changes: -RT-ALBUTEROL SULF 2.5 MG/3 ML PRE-MIX VIAL INH ONE
--- NOTE | 2019-06-06 09:59 | Diagnostic Imaging Report ---
INDICATION: 48-year-old female with history of prior fracture. COMPARISON: 09/05/2015. FINDINGS: AP Spine L1-L4: [BMD (g/cm2): 1.042] [T-Score: -1.3] [Z-Score: -0.3] [BMD Previous: 1.158] [BMD % Change: -10.0] LT Hip Neck: [BMD (g/cm2): 0.696] [T-Score: -2.5] [Z-Score: -1.3] LT Hip Total: [BMD (g/cm2):0.761] [T-Score:-2.0] [Z-Score: -1.1] [BMD Previous: 0.828] [BMD % Change: -8.1] RT Hip Neck: [BMD (g/cm2):0.760] [T-Score:-2.0] [Z-Score:-0.8] RT Hip Total: [BMD (g/cm2):0.759] [T-score:-2.0] [Z-Score:-1.1] [BMD Previous:0.803] [BMD % Change:-5.5] *Indicates significant change from prior examination based on 95% confidence level. World Health Organization criteria for BMD interpretation classify patients as Normal (T-score at or above -1.0), Osteopenic (T-score between -1.0 and -2.5) or Osteoporotic (T-score at or below -2.5). LIMITATIONS AND MODIFICATION: None. FRACTURE RISK (FRAX SCORE): Not applicable as patient meets criteria for osteoporosis. IMPRESSION: 1. Osteoporosis. 2. No significant change in bone mineral density since prior examination. 3. See below National Osteoporosis Foundation guidelines on when to potentially initiate pharmacologic therapy. Based on the National Osteoporosis Foundation Guidelines, pharmacologic treatment should be initiated in any of the following, unless clinical conditions suggest otherwise: * Any patient with prior fragility fracture of the hip or vertebrae. A spine fracture indicates 5X risk for subsequent spine fracture and 2X risk for subsequent hip fracture. * Osteoporosis (T-score <-2.5). * Postmenopausal women and men age 50 and older with low bone mass/osteopenia (T-score between -1.0 and -2.5) by DXA and 10-year major osteoporotic fracture greater than 20% or a 10-year probability of hip fracture greater than 3%. These fracture risks are supplied above in the FRAX score, if applicable. * Clinician judgement and/or patient preferences may indicate treatment for people with 10-year fracture probabilities above or below these levels. Dictated by: Dictated on workstation # [id number]
== END ==
LOC: RAD 08:22
PROVIDERS: ATTEND Family Medicine
DX: M81.0 Age-related osteoporosis without current pathological fracture (principal); M85.89 Other specified disorders of bone density and structure, multiple sites; Z87.81 Personal history of (healed) traumatic fracture
CPT/HCPCS: 77080

== ENCOUNTER → 2020-02-12 | Outpatient (CLI) | payer MEDICARE, MEDICAID ==
[~2020-02-12] MED LIST changes: -MORP-33; +MORP-68
[2020-02-12 09:13] LABS: BASOPHILS # (AUTO) 0.1 10^3/uL (0.0-0.1); BASOPHILS % (AUTO) 1 % (0-10); EOSINOPHILS # (AUTO) 0.1 10^3/uL (0.0-0.3); EOSINOPHILS % (AUTO) 1 % (0-10); HEMATOCRIT 42 % (35-52); HEMOGLOBIN 14.2 G/DL (11.5-16.0); LYMPHOCYTES # (AUTO) 3.3 X 10^3 (1.0-4.0); LYMPHOCYTES % (AUTO) 27 % (12-44); MEAN CORPUSCULAR HEMOGLOBIN 33 PG (25-34); MEAN CORPUSCULAR HGB CONC 34 G/DL (32-36); MEAN CORPUSCULAR VOLUME 97 FL (80-99); MEAN PLATELET VOLUME 8.8 FL (7.4-10.4); MONOCYTES # (AUTO) 0.8 X 10^3 (0.0-1.0); MONOCYTES % (AUTO) 7 % (0-12); NEUTROPHILS # (AUTO) 7.9 X 10^3 (1.8-7.8); NEUTROPHILS % (AUTO) 65 % (42-75); PLATELET COUNT 353 10^3/uL (130-400); RED CELL DISTRIBUTION WIDTH 14.7 % (10.0-14.5); WHITE BLOOD COUNT 12.2 10^3/uL (4.3-11.0)
[2020-02-12 09:45] LABS: ALANINE AMINOTRANSFERASE 12 U/L (0-55); ALBUMIN 4.1 GM/DL (3.2-4.5); ALKALINE PHOSPHATASE 56 U/L (40-136); BILIRUBIN,TOTAL 0.4 MG/DL (0.1-1.0); BUN/CREATININE RATIO 18; CALCIUM 8.8 MG/DL (8.5-10.1); CARBON DIOXIDE 23 MMOL/L (21-32); CHLORIDE 109 MMOL/L (98-107); CHOLESTEROL 192 MG/DL (< 200); CREATININE SERUM 0.76 MG/DL (0.60-1.30); GFR ESTIMATED > 60; GLUCOSE 87 MG/DL (70-105); HDL CHOLESTEROL 45 MG/DL (40-60); POTASSIUM 4.4 MMOL/L (3.6-5.0); SODIUM 139 MMOL/L (135-145); TOTAL PROTEIN 6.7 GM/DL (6.4-8.2); TRIGLYCERIDES 71 MG/DL (<150); VLDL CHOLESTEROL 14 MG/DL (5-40)
--- NOTE | 2020-02-12 10:13 | Diagnostic Imaging Report ---
INDICATION: Routine screening. Comparison is made with prior mammogram from 01/30/2019 and 09/05/2015. 2-D and 3-D bilateral screening mammography was performed with CAD. Scattered fibroglandular densities are identified bilaterally. The parenchymal pattern is stable. No mass or malignant-appearing microcalcifications are seen. Axillae are unremarkable. IMPRESSION: BI-RADS Category 1 No mammographic features suspicious for malignancy are identified. ACR BI-RADS Category 1: Negative. Result letter will be mailed to the patient. Note: At least 10% of breast cancer is not imaged by mammography. Dictated by: Dictated on workstation # [id number]
== END ==
LOC: RAD 08:15
PROVIDERS: ATTEND Nurse Practitioner Family
DX: Z12.31 Encounter for screening mammogram for malignant neoplasm of breast (principal)
CPT/HCPCS: 36415; 77063; 77067; 80053; 80061; 84443; 85025

== ENCOUNTER → 2020-04-01 | Outpatient (CLI) | payer MEDICARE, MEDICAID ==
--- NOTE | 2020-04-01 15:17 | Diagnostic Imaging Report ---
INDICATION: Chronic low back pain. Time of exam 2:52 p.m. Frontal and lateral views of the lumbar spine were obtained. Curvature and alignment is normal. Vertebral body heights and disc spaces are well maintained. No fracture or subluxation is seen. IMPRESSION: No acute bony abnormality is detected. Dictated by: Dictated on workstation # [id number]
== END ==
LOC: RAD 14:32
PROVIDERS: ATTEND Nurse Practitioner Family
DX: M54.5 Low back pain (principal)
CPT/HCPCS: 72100

== ENCOUNTER → 2023-04-13 | Outpatient (CLI) | payer MEDICARE, MEDICAID ==
[~2023-04-13] MED LIST changes: -OXYC-464; +OXYC1TAB15
--- NOTE | 2023-04-13 14:12 | Diagnostic Imaging Report ---
INDICATION: Routine screening. Comparison is made with prior mammogram from 02/12/2020 and 01/30/2019. 2-D and 3-D bilateral screening mammography was performed with CAD. Both breasts are heterogeneously dense, limiting the sensitivity of mammography. The parenchymal pattern is stable. No mass or malignant-appearing microcalcifications are seen. Axillae are unremarkable. IMPRESSION: No mammographic features suspicious for malignancy are identified. ACR BI-RADS Category 1: Negative. Result letter will be mailed to the patient. Note: At least 10% of breast cancer is not imaged by mammography. BI-RADS Category 1 Dictated by: Dictated on workstation # [id number]
== END ==
LOC: RAD 07:45
PROVIDERS: ATTEND Family Medicine
DX: Z12.31 Encounter for screening mammogram for malignant neoplasm of breast (principal)
CPT/HCPCS: 77063; 77067